=== PATIENT | male | born 1985 | race Caucasian/White ===

== ENCOUNTER 2019-08-02 12:03 | Day surgery (SDC) | payer BC ==
[2019-07-27 16:30] VITALS: BMI 25.1
[2019-08-02] MEDS ORDERED: MIDAZOLAM HCL 2 MG/2 ML SINGLE DOSE VIAL ONE (15:55)
[2019-08-02] MEDS ORDERED: PROPOFOL 20 ML ONE (15:56)
[2019-08-02] MEDS ORDERED: fentaNYL CITRATE 250 MCG/5 ML VIAL ONE (15:56)
[2019-08-02] MEDS ORDERED: KETOROLAC TROMETHAMINE 30 MG/1 ML VIAL ONE (15:57)
[2019-08-02] MEDS ORDERED: DEXAMETHASONE SOD PHOSPHATE 4 MG/1 ML VIAL ONE (15:57)
--- NOTE | 2019-08-02 16:27 | OP ---
Operative Note - Note: Operative Date: 08/02/19 Pre-Operative Diagnosis: 6 mm Left renal stone Operation: Left ESWL Findings: 6 mm mid pole Left renal stone Surgeon: Abdirizak Evangelista Anesthesia: Fractional Estimated Blood Loss (mls): 0 Drains, Volume Out (mls): 0 Operative Report Dictated: Yes
[2019-08-02] MEDS ORDERED: GLYCOPYRROLATE 0.2 MG/1 ML VIAL ONE (16:36)
--- NOTE | 2019-08-02 17:50 | OP ---
DATE OF OPERATION: 08/02/2019 PREOPERATIVE DIAGNOSIS: Left renal stone. POSTOPERATIVE DIAGNOSIS: Left renal stone. PROCEDURE: Left extracorporeal shock-wave lithotripsy. ATTENDING: Mariano Wills MD ANESTHESIA: Fractional. DESCRIPTION OF PROCEDURE: The patient was brought in the operating room and placed in a supine position on the operating room table. Ultrasonography and fluoroscopy were performed. A 6-mm left midpole stone was identified. At this point, anesthesia and preoperative antibiotics were administered. Shock-wave lithotripsy was then performed. Excellent fragmentation was noted under real time ultrasonography and fluoroscopy. No complications were noted. The patient tolerated the procedure very well. MARIANO WILLS M.D. /[id number]
[2019-08-02 17:52] VITALS: BP 120/72; PULSE 78; TEMP 98
== END 2019-08-02 17:53 | disposition home or self-care (01) ==
LOC: JASU-SURG 12:03
PROVIDERS: ATTEND Urology
PROC: 0TF4XZZ Fragmentation in Left Kidney Pelvis, External Approach (ICD-10-PCS; principal; 2019-08-02 15:30)
DX: N20.0 Calculus of kidney (principal)